=== PATIENT | male | born 1960 | race African-American/Black ===

== ENCOUNTER 2018-05-19 21:52 | Emergency (ER) | payer MEDICAID ==
[~2018-05-19] VITALS: Ht 172.7 cm; Wt 77.1 kg
[2018-05-20 00:33] LABS: Basophils # (auto) 0.1 uL; Basophils % (auto) 1.2 % (0.0-2.0); Eosinophils # (auto) 0.4 uL; Eosinophils % (auto) 3.6 % (0.0-7.0); Hematocrit 43.4 % (41.0-53.0); Hemoglobin 14.2 g/dL (13.5-17.5); Lymphocytes % (auto) 18.5 % (10.0-50.0); Mean Corpuscular Hemoglobin 27.9 pg (28.0-32.0); Mean Corpuscular Hgb Conc. 32.8 g/dL (32.0-36.0); Mean Corpuscular Volume 84.9 fL (80.0-100.0); Monocytes # (auto) 0.9 uL; Monocytes % (auto) 8.6 % (0.0-12.0); Neutrophils # (auto) 7.4 uL; Neutrophils % (auto) 68.1 % (37.0-80.0); Nucleated Red Blood Cells % 0.1 %; Platelet Count (auto) 324 10^3/uL (140-450); Red Blood Cells 5.11 10^6/uL (4.5-5.90); Red Cell Distribution Width 14.4 % (11.8-14.3); White Blood Cell 10.8 10^3/uL (4.4-10.8)
[2018-05-20 00:50] LABS: Partial Thromboplastin Time 31.7 sec (23.78-33.04); Prothrombin Time 10.7 sec (9.27-12.13)
[2018-05-20 01:35] LABS: Anion Gap 8 (5-15); Carbon Dioxide 23 mmol/L (21-32); Chloride 111 mmol/L (98-107); Glucose 145 mg/dL (74-106); Potassium 3.9 mmol/L (3.5-5.1); Sodium 142 mmol/L (136-145)
[2018-05-20 01:36] LABS: Alanine Aminotransferase 28 U/L (16-61); Albumin 3.6 g/dL (3.4-5.0); Alkaline Phosphatase 128 U/L (45-117); Aspartate Aminotransferase 17 U/L (15-37); BUN/Creatinine Ratio 9.3; Bilirubin, Total 0.4 mg/dL (0.2-1.0); Blood Urea Nitrogen 8 mg/dL (7-18); Calcium 9.2 mg/dL (8.5-10.1); GFR African American 117 mL/min; GFR Non-African American 97 mL/min; Magnesium 2.3 mg/dL (1.6-2.6); Total Protein 7.7 g/dL (6.4-8.2)
[2018-05-20 05:48] VITALS: BP 144/93
== END 2018-05-20 06:00 | disposition home or self-care (01) ==
LOC: ER 21:52
DX: M19.012 Primary osteoarthritis, left shoulder (principal); J45.909 Unspecified asthma, uncomplicated; I10 Essential (primary) hypertension; M10.9 Gout, unspecified
CPT/HCPCS: 36415; 71045; 80053; 83735; 83880; 84484; 84550; 85025; 85379; 85610; 85730; 93005

== ENCOUNTER 2018-05-30 09:23 | Emergency (ER) | payer MEDICAID ==
[~2018-05-30] VITALS: Ht 172.7 cm; Wt 77.1 kg
[2018-05-30 09:36] VITALS: BP 170/95
[2018-05-30] MEDS ORDERED: KETOROLAC TROMETH 60MG/2ML VIAL IM ONE (10:30)
== END 2018-05-30 11:03 | disposition home or self-care (01) ==
LOC: ER 09:23
DX: M10.071 Idiopathic gout, right ankle and foot (principal); J45.909 Unspecified asthma, uncomplicated; I10 Essential (primary) hypertension
CPT/HCPCS: 96372; 99283; J1885

== ENCOUNTER 2018-07-30 07:40 | Emergency (ER) | payer MEDICAID ==
[~2018-07-30] VITALS: Ht 172.7 cm; Wt 77.1 kg
[2018-07-30] MEDS ORDERED: cloNIDine HCL 0.1 MG TAB ONE (07:51)
[2018-07-30] MEDS ORDERED: cloNIDine HCL 0.1 MG TAB PO ONE (08:00)
[2018-07-30 09:52] LABS: Basophils # (auto) 0.1 uL; Basophils % (auto) 1.1 % (0.0-2.0); Eosinophils # (auto) 0.2 uL; Eosinophils % (auto) 2.9 % (0.0-7.0); Hematocrit 44.8 % (41.0-53.0); Hemoglobin 15.2 g/dL (13.5-17.5); Lymphocytes # (auto) 1.6 uL; Lymphocytes % (auto) 22.3 % (10.0-50.0); Mean Corpuscular Hemoglobin 28.5 pg (28.0-32.0); Mean Corpuscular Hgb Conc. 33.9 g/dL (32.0-36.0); Monocytes # (auto) 0.7 uL; Monocytes % (auto) 9.2 % (0.0-12.0); Neutrophils # (auto) 4.6 uL; Neutrophils % (auto) 64.5 % (37.0-80.0); Nucleated Red Blood Cells % 0.4 %; Platelet Count (auto) 246 10^3/uL (140-450); Red Blood Cells 5.34 10^6/uL (4.5-5.90); Red Cell Distribution Width 16.4 % (11.8-14.3); White Blood Cell 7.1 10^3/uL (4.4-10.8)
[2018-07-30 10:04] LABS: Alanine Aminotransferase 37 U/L (16-61); Albumin 3.4 g/dL (3.4-5.0); Anion Gap 11 (5-15); Aspartate Aminotransferase 25 U/L (15-37); BUN/Creatinine Ratio 9.2; Blood Urea Nitrogen 9 mg/dL (7-18); Carbon Dioxide 22 mmol/L (21-32); Chloride 110 mmol/L (98-107); GFR African American 101 mL/min; GFR Non-African American 83 mL/min; Glucose 115 mg/dL (74-106); Potassium 4.1 mmol/L (3.5-5.1); Sodium 143 mmol/L (136-145)
[2018-07-30 10:08] LABS: Alkaline Phosphatase 90 U/L (45-117); Bilirubin, Total 0.4 mg/dL (0.2-1.0); Total Protein 7.4 g/dL (6.4-8.2)
[2018-07-30 14:30] VITALS: BP 154/90
== END 2018-07-30 14:39 | disposition home or self-care (01) ==
LOC: ER 07:40
DX: I10 Essential (primary) hypertension (principal); J45.909 Unspecified asthma, uncomplicated; M10.9 Gout, unspecified
CPT/HCPCS: 36415; 71046; 80053; 84484; 85025; 93005

== ENCOUNTER 2018-10-09 20:30 | Inpatient (IN) | payer MEDICAID | END 2018-10-10 19:05 | disposition home or self-care (01) | LOC: TELE 10-10 07:13 → TELE-WESTW 10-10 10:00 → ER 20:30 ==